=== PATIENT | male | born 1975 | race Caucasian/White ===

== ENCOUNTER 2022-02-19 17:02 | Emergency (ER) | payer SELFPAY ==
[~2022-02-19] VITALS: Ht 182.9 cm; Wt 85.0 kg
[~2022-02-19 17:02] MED LIST: NO HOME MEDS
[2022-02-19 17:11] VITALS: BP 135/88
== END 2022-02-19 17:48 ==
LOC: ER 17:02
DX: F10.129 Alcohol abuse with intoxication, unspecified (principal); Y90.9 Presence of alcohol in blood, level not specified
CPT/HCPCS: 82948; 99283